=== PATIENT | female | born 1950 | race Caucasian/White ===

== ENCOUNTER → 2021-12-17 | Outpatient (CLI) | payer OTHER, MEDICARE ==
--- NOTE | 2021-12-17 10:47 | US ---
EXAMINATION TYPE: US transvaginal DATE OF EXAM: 12/17/2021 COMPARISON: NONE CLINICAL INDICATION:Female, 71 years old with history of N93.9 ABN UTERINE AND VAGINAL BLEEDING; Post menopausal bleeding x 2 weeks TECHNIQUE: Transvaginal exam only per patient's order Date of LMP: patient states many years ago EXAM MEASUREMENTS: Uterus: 6.0 x 3.6 x 4.8 cm Endometrial Stripe: 2.2 cm 1. Uterus: anteverted, heterogeneous, 0.8c calcification seen left ZEV 2. Endometrium: thickened, vascular, with calcifications. 3. Right Ovary: not seen 4. Left Ovary: not seen 5. Bilateral Adnexa: wnl 6. Posterior cul-de-sac: wnl IMPRESSION: Thickened endometrium with vascular masslike appearance concerning for endometrial carcinoma. Gynecol ogic oncology consultation recommended.
== END | disposition home or self-care (01) ==
LOC: RADUSWWP 09:19
PROVIDERS: ATTEND Family Medicine
DX: N93.9 Abnormal uterine and vaginal bleeding, unspecified (principal)
CPT/HCPCS: 76830

== ENCOUNTER → 2022-02-04 | Outpatient (CLI) | payer OTHER, MEDICARE ==
[2022-02-04 10:37] LABS: African American GFR (CKD) >90 (>60 ml/min/1.73 sqM); Anion Gap 5 mmol/L; Blood Urea Nitrogen 13 mg/dL (7-17); Calcium 9.1 mg/dL (8.4-10.2); Carbon Dioxide 31 mmol/L (22-30); Chloride 105 mmol/L (98-107); Glucose 93 mg/dL (74-99); Non-African American GFR(CKD) 88 (>60 ml/min/1.73 sqM); Potassium 4.2 mmol/L (3.5-5.1); Sodium 141 mmol/L (137-145)
--- NOTE | 2022-02-04 12:14 | CT ---
EXAMINATION TYPE: CT ChestAbdPelvis w con CT DLP: 766.8 mGycm, Automated exposure control for dose reduction was used. DATE OF EXAM: 02/04/2022 11:55 AM COMPARISON: Pelvic ultrasound 12/17/2021. CLINICAL INDICATION:Female, 71 years old with history of endometrial ca; PHH, Vaginal bleeding. Technique: Multiple axial images of the chest, abdomen, and pelvis were obtained following the intrav enous administration of 70 cc Isovue-300. Oral contrast was administered. Two-dimensional coronal and sagittal reconstructions were obtained. Findings: CHEST: LUNGS/ PLEURA: No pneumothorax, pleural effusion, or focal consolidation. Right upper lobe 4 mm pulmo nary nodule (series 4, image 14). AIRWAY: Patent and unremarkable.. HEART: Size within normal limits. No pericardial effusion. MEDIASTINUM: No evidence of adenopathy. VASCULATURE: No aortic aneurysm. MUSCULOSKELETAL: No acute osseous abnormalities. No aggressive osseous lesion. SOFT TISSUES/LYMPH NODES: Unremarkable. LOWER NECK: No significant findings. ABDOMEN: ABDOMEN LIVER: Unremarkable GALLBLADDER AND BILE DUCTS: Unremarkable. PANCREAS: Unremarkable. SPLEEN: Unremarkable. ADRENAL GLANDS: Unremarkable. KIDNEYS AND URETERS: No evidence of hydronephrosis or renal calculus. The kidneys enhance symmetrical ly. Subcentimeter hypodense lesion within the right mid kidney which is too small to characterize. PELVIS BLADDER: Unremarkable REPRODUCTIVE: Heterogenous thickened endometrium measuring up to 2.2 cm. Anterior right fundal projec tion measuring up to 1.3 cm. No suspicious adnexal mass. Calcification demonstrated within the left a spect of the lower uterine segment. Left perineum 1.1 cm nodule near the labia majora (series 3, imag e 128). ABDOMEN & PELVIS STOMACH AND BOWEL: Stomach and duodenum are unremarkable or distal colonic diverticulosis without brissa dence for acute diverticulitis. Enteric contrast reaches the splenic flexure. No focal wall thickenin g or surrounding inflammatory changes. No evidence of bowel obstruction. PERITONEUM: No evidence of pneumoperitoneum or free fluid. No omental nodularity. VASCULATURE: No evidence of aortic aneurysm. Pelvic phleboliths. MUSCULOSKELETAL: No acute osseous abnormalities. No aggressive osseous lesion. LYMPH NODES: No gross evidence for lymphadenopathy. SOFT TISSUE/ABDOMINAL WALL: Small fat filled hernia. IMPRESSION: 1. Heterogenous thickened endometrium measuring up to 2.2 cm consistent with known endometrial carci noma. No definitive evidence for distant metastasis. 2. Right upper lobe 4 mm pulmonary nodule. Otherwise no definitive evidence for thoracic metastasis. 3. Distal colonic diverticulosis without evidence for acute diverticulitis. 4. 1.1 cm nodule near the labia majora in the left perineum. This may represent a Guerita duct cyst. Clinical correlation recommended.
[2022-02-04 12:34] LABS: Appearance,Urine Clear (Clear); Bilirubin,Urine Negative (Negative); Blood,Urine Negative (Negative); Color,Urine Light Yellow; Glucose,Urine (UA) Negative (Negative); Ketones,Urine Negative (Negative); Leukocyte Esterase,Urine Negative (Negative); Nitrite,Urine Negative (Negative); PH, Urine 6.5 (5.0-8.0); Protein,Urine Negative (Negative); Urobilinogen,Urine <2.0 mg/dL (<2.0)
[2022-02-04 14:23] LABS: Basophils # (A) 0.07 X 10*3/uL (0.00-0.10); Basophils % (A) 1.8 %; Eosinophils # (A) 0.15 X 10*3/uL (0.04-0.35); Eosinophils % (A) 3.9 %; HCT 42.5 % (37.2-46.3); HGB 13.3 g/dL (12.0-15.0); Immature Grans, Automated 0.3 %; Lymphocytes # (A) 0.93 X 10*3/uL (0.90-5.00); Lymphocytes % (A) 24.4 %; MCH 29.2 pg (27.0-32.0); MCHC 31.3 g/dL (32.0-37.0); MCV 93.2 fL (80.0-97.0); Mean Platelet Volume 11.4 fL (9.5-12.2); Monocytes # (A) 0.34 X 10*3/uL (0.20-1.00); Monocytes % (A) 8.9 %; NRBC Per 100 WBC 0 /100 WBCS (0.0-0.0); Neutrophils # (A) 2.31 X 10*3/uL (1.80-7.70); Neutrophils % (A) 60.7 %; Platelet Count 274 X 10*3/uL (140-440); RBC 4.56 X 10*6/uL (4.10-5.20); RDW 14.2 % (11.5-14.5); WBC 3.81 X 10*3/uL (4.50-10.00)
== END | disposition home or self-care (01) ==
LOC: RADCTMAIN 09:34
PROVIDERS: ATTEND Obstetrics & Gynecology
DX: N93.9 Abnormal uterine and vaginal bleeding, unspecified (principal); R91.1 Solitary pulmonary nodule; K57.30 Diverticulosis of large intestine without perforation or abscess without bleeding; R93.89 Abnormal findings on diagnostic imaging of other specified body structures
CPT/HCPCS: 86900; 86901; 80048; 85025; 86850; 81003; 71260; 74177; 36415; Q9967

== ENCOUNTER → 2023-05-09 | Outpatient (CLI) | payer MEDICARE, OTHER ==
[2023-05-09 13:49] LABS: African American GFR (CKD) >90 (>60 ml/min/1.73 sqM); Blood Urea Nitrogen 18 mg/dL (7-17); Non-African American GFR(CKD) 89 (>60 ml/min/1.73 sqM)
--- NOTE | 2023-05-13 09:08 | CT ---
EXAMINATION TYPE: CT ChestAbdPelvis w con DATE OF EXAM: 05/09/2023 INDICATION: MALIGNANT NEOPLASM OF ENDOMETRIUM COMPARISON: CT DLP: 1544 mGycm CONTRAST: Performed with Oral Contrast and with IV Contrast, patient injected with 100 mL of Isovue 300. TECHNIQUE: Axial images at 5 mm thick sections. Reconstructed images in the coronal plane. Delayed images through the kidneys. FINDINGS: CT CHEST: Portion of the thyroid visualized is normal. There is a 0.3 cm nodule within the right apex. Series 4 image 7. This appears new from comparison. There is a 0.4 cm stable nodule posterior lateral right apex. Series 4 image 10. No enlarged mediastinal or hilar adenopathy is evident. Multiple scattered small lymph nodes are pres ent The ascending aorta diameter at the level of the main pulmonary artery is 3.4 cm. The main pulmonary artery diameter at the bifurcation is 3.[address] ABDOMEN: Note is made of some reflux into the esophagus. Small hiatal hernia is present. Liver: Normal Spleen: Normal Pancreas: Normal Adrenal glands: The adrenal glands are normal. Gallbladder: Normal Kidneys: No masses are evident. No hydronephrosis is present. No cysts are present. Delayed images were obtained through the kidneys, which remain unremarkable. Aorta: Normal Inferior vena cava: Normal. CT PELVIS: Loops of bowel within the abdomen and pelvis are normal. There are scattered diverticuli within the s igmoid colon without evidence of acute diverticulitis. There are loops of bowel which are incomple tely distended or lack oral contrast limiting their evaluation. Appendix: Not identified. No dilated tubular structure or inflammatory change is evident. Urinary bladder: Normal. Genitourinary structures: Uterus and ovaries are not identified. Osseous structures: There is a subtle lucency with sclerotic margin within the left posterior aspect of the lower thoracic vertebral level, series 3 image 41 this is not clearly identified previously. M etastatic lesion is not excluded. IMPRESSION: 1. Left posterior lateral thoracic vertebral body bone lesion may be new. However, this may have some benign appearing characteristics as well. Metastasis however cannot be excluded. Consider PET/CT or nuclear medicine bone scan for additional evaluation. 2. New 0.3 cm nodule anterior right lung apex. 3. Diverticulosis without acute diverticulitis. 4. Gastroesophageal reflux.
== END | disposition home or self-care (01) ==
LOC: RADCTMAIN 12:53
PROVIDERS: ATTEND Obstetrics & Gynecology
DX: K21.9 Gastro-esophageal reflux disease without esophagitis (principal); K57.30 Diverticulosis of large intestine without perforation or abscess without bleeding; M89.8X8 Other specified disorders of bone, other site; R91.1 Solitary pulmonary nodule; C54.1 Malignant neoplasm of endometrium
CPT/HCPCS: 86304; 82565; 84520; 71260; 74177; 36415; Q9967

== ENCOUNTER → 2023-06-16 | Outpatient (CLI) | payer MEDICARE, OTHER ==
--- NOTE | 2023-06-18 06:12 | PE ---
EXAMINATION TYPE: PET CT fusion skull to thigh DATE OF EXAM: 06/16/2023 COMPARISON: Most recent prior CT May 09, 2023 HISTORY: New concerning lesion on CT . History of endometrial cancer. TECHNIQUE: Following the intravenous administration of 10.72 mCi of F-18 FDG, whole body images are performed from the skull base to the midthigh. Images are reviewed on the computer in the coronal, a xial, and sagittal planes. Reconstructed rotating images are created on independent workstation and reviewed on the computer. A localization and attenuation correction CT is performed in conjunction with the PET scan. Blood glucose level equals 90. SCAN: Subsequent Scan FINDINGS: SKULL BASE AND NECK: Normal-sized thyroid gland with abnormal hypermetabolic uptake, correlate for p ossible hyperthyroidism. No additional areas of abnormal hypermetabolic uptake. CHEST, MEDIASTINUM, AND HILAR REGION: No areas of abnormal hypermetabolic uptake. ABDOMEN AND PELVIS: Normal excretion is seen. No areas of abnormal hypermetabolic uptake. OSSEOUS STRUCTURES: No areas of abnormal hypermetabolic uptake with particular attention to the left mid to lower thoracic vertebrae at area of concern on recent CT. OTHER CT: There is 3 mm right upper lobe pulmonary nodule axial image 67 redemonstrated. Diverticula throughout the colon are redemonstrated. Uterus is surgically absent. IMPRESSION: No abnormal hypermetabolic uptake to suggest new osseous or metastatic neoplasm.
== END | disposition home or self-care (01) ==
LOC: RADPETMAIN 14:12
PROVIDERS: ATTEND Obstetrics & Gynecology
DX: R93.89 Abnormal findings on diagnostic imaging of other specified body structures (principal); Z85.42 Personal history of malignant neoplasm of other parts of uterus
CPT/HCPCS: 78815; A9552

== ENCOUNTER → 2023-12-15 | Outpatient (CLI) | payer MEDICARE, OTHER ==
[2023-12-15 12:08] LABS: African American GFR (CKD) 88 (>60 ml/min/1.73 sqM); Blood Urea Nitrogen 18 mg/dL (7-17); Non-African American GFR(CKD) 76 (>60 ml/min/1.73 sqM)
--- NOTE | 2023-12-16 15:01 | CT ---
EXAMINATION TYPE: CT ChestAbdPelvis w con DATE OF EXAM: 12/15/2023 COMPARISON: 06/16/2023, 02/04/2022 HISTORY: 73-year-old female C54.1, ENDOMETRIUM CA TECHNIQUE: Contiguous axial scanning of the chest, abdomen, and pelvis performed with IV Contrast, pa tient injected with 100 mL of Isovue 300. Delayed images through the kidneys were obtained. Coronal/s agittal reconstructions performed. CT DLP: 767 mGycm Automated exposure control for dose reduction was used. FINDINGS: CHEST: The heart is normal size without pericardial effusion. 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 No thoracic lymphadenopathy by CT size criteria. Stable 3 mm posterior right apical pulmonary nodule. Tiny 2 mm anterior right midlung pulmonary nodul e is unchanged. No new pulmonary nodules identified. No consolidation or pleural effusion. ABDOMEN: No focal liver lesion or biliary ductal dilatation. Portal venous system is patent. Gallbladder, adrenal glands kidneys and bilateral external pelves, spleen, and pancreas within normal limits. No dilated small bowel, free fluid, or free air. No mesenteric or retroperitoneal lymphadenopathy. Oral contrast progressed to the descending colon. Mild scattered colonic diverticulosis, greatest wit hin the sigmoid colon. There is mild circumferential wall thickening along the proximal to mid sigmoid colon which may partl y be due to nondistention. No surrounding inflammation is seen. 2.1 cm lipoma at the ileocecal valve region. Pelvis: Bladder only partially distended. Uterus surgically absent. Small pelvic phleboliths. Ovaries surgica lly absent. No abnormal fluid collection in pelvis or pelvic lymphadenopathy. Bones: Unchanged lucent lesion left T10 vertebral body. Mild degenerative disc disease mid to lower thoracic spine. Facet arthropathy lower lumbar spine. No osseous destructive process seen. Osteopenia. IMPRESSION: 1. STATUS POST HYSTERECTOMY AND BILATERAL SALPINGO-OOPHORECTOMIES. A COUPLE PULMONARY NODULES MEASURI NG UP TO 3 MM ON THE RIGHT MAIN UNCHANGED. THE SMALL LUCENT LESION WITHIN THE LEFT T10 VERTEBRAL BODY IS ALSO UNCHANGED. 2. NO SUSPICIOUS LYMPHADENOPATHY OR MASS TO SUGGEST RECURRENT OR METASTATIC DISEASE. 3. GENERALIZED COLONIC DIVERTICULOSIS. GREATEST IN THE SIGMOID COLON. THERE IS MILD CIRCUMFERENTIAL W ALL THICKENING PROXIMAL TO MID SIGMOID COLON WHICH MAY BE DUE TO NONDISTENTION. CORRELATE FOR ANY SYM PTOMS OF A NONSPECIFIC MILD ACUTE COLITIS. [facility], , 12/16/2023 2:58 PM
== END | disposition home or self-care (01) ==
LOC: RADCTMAIN 11:14
PROVIDERS: ATTEND Obstetrics & Gynecology
DX: C54.1 Malignant neoplasm of endometrium
CPT/HCPCS: 36415; 71260; 74177; 82565; 84520